=== PATIENT | female | born 1990 | race Two or more races ===

== ENCOUNTER 2017-04-11 08:09 | Day surgery (SDC) | payer MEDICARE ==
[~2017-04-11] VITALS: Ht 170.2 cm; Wt 59.9 kg
[~2017-04-11 08:09] MED LIST: LEVORA-281 EACH PO
[2017-04-11 08:42] VITALS: BP 126/81
[2017-04-11 11:15] VITALS: BP 124/76
[2017-04-11 12:25] VITALS: BP 119/58
== END 2017-04-11 12:26 | disposition home or self-care (01) ==
LOC: SDC 08:09
PROC: 0UBC7ZX Excision of Cervix, Via Natural or Artificial Opening, Diagnostic (ICD-10-PCS; principal; 2017-04-11)
DX: D06.7 Carcinoma in situ of other parts of cervix (principal)
CPT/HCPCS: 88305; 88307; 88342 TC; J0131; J1100; J1885; J2250; J2405; J3010